=== PATIENT | male | born 1960 | race Caucasian/White ===

== ENCOUNTER 2021-01-04 04:22 | Observation (INO) | payer MEDICARE, MEDICAID ==
[~2021-01-04] VITALS: Ht 175.3 cm; Wt 64.1 kg
[~2021-01-04 04:22] MED LIST: AMIT50TA PO; BP MED PO; ENAL10TA9 PO; FOLI1TAB32 PO; INSU100C5 SQ-INSULIN; INSU100V8 SQ; LONG ACTING INSULIN SQ; MAGN400T50 PO; PANT40TA6 PO; PHOS250T PO; POLY17PO5 PO; THIA100T67 PO
[2021-01-04] MEDS ORDERED: DEXTROSE 50%, 50ML SYRINGE ONE (04:47)
[2021-01-04] MEDS ORDERED: DEXTROSE 10% 1,000 ML IV SCH (05:00)
[2021-01-04] MEDS ORDERED: DEXTROSE 50%, 50ML SYRINGE IVPush ONE (05:00)
[2021-01-04] MEDS ORDERED: DEXTROSE 10%, 1,000ML IV ONE (05:00)
[2021-01-04] MEDS ORDERED: HYDROmorphone 1 MG/ML, 1ML INJ ONE (05:14)
[2021-01-04] MEDS ORDERED: HYDROmorphone 1 MG/ML, 1ML INJ IV ONE (05:30)
[2021-01-04 05:38] LABS: BASOPHILS % (AUTO) 0 % (0-1); EOSINOPHILS % (AUTO) 0 % (1-7); LYMPHOCYTES % (AUTO) 10 % (22-44); MEAN CORPUSCULAR HEMOGLOBIN 30.7 pg (27.5-34.5); MEAN CORPUSCULAR HGB CONC 32.6 g/dL (33.2-36.2); MEAN PLATELET VOLUME 8.9 fL (7.4-10.4); MONOCYTES % (AUTO) 5 % (2-9); NEUTROPHILS % (AUTO) 85 % (42-75); PLATELET COUNT 342 x10^3/uL (130-400); RED BLOOD COUNT 3.63 x10^6/uL (4.38-5.82); RED CELL DISTRIBUTION WIDTH 13.2 % (9.4-14.8)
[2021-01-04 05:40] LABS: MD NO
[2021-01-04 05:50] LABS: CHLORIDE 104 mmol/L (98-107)
[2021-01-04 05:55] LABS: ALANINE AMINOTRANSFERASE 20 U/L (12-78); ALBUMIN 3.3 g/dL (3.4-5.0); ALKALINE PHOSPHATASE 85 U/L (45-117); ANION GAP 5 mmol/L (5-15); BILIRUBIN,TOTAL 0.5 mg/dL (0.2-1.0); CALCIUM 8.2 mg/dL (8.5-10.1); CREATININE 0.81 mg/dL (0.7-1.3); TOTAL PROTEIN 6.7 g/dL (6.4-8.2)
[2021-01-04 06:15] LABS: MICROSCOPIC NOT IND
--- NOTE | 2021-01-04 06:33 | NUR ---
PT STATES BACK WENT OUT, CRAWLED TO NEIGHBOR STATES HE MAY HAVE BLACKED OUT EMS CALLED FOUND PT GLUCOSE WAS AT 30. ENROUTE ADMINSTED D10 SAID WENT TO 90.
--- NOTE | 2021-01-04 06:35 | NUR ---
AT 0500 PT BP WAS 164/71 ERP NOTIFIED NOT NEW AT THIS TIME, AND NO SYMPTOMS RELATED TO HTN AT THIS TIME ALSO.
--- NOTE | 2021-01-04 06:37 | NUR ---
PT HYPERTENSIVE AT THIS TIME. ERP AWARE WITH NO NEW ORDERS AT THIS TIME.
--- NOTE | 2021-01-04 06:56 | NUR ---
REPORT GIVEN TO ELGIN LANDIN.
[2021-01-04] MEDS ORDERED: ACETAMINOPHEN 325 MG TABLET PO PRN (07:30)
[2021-01-04] MEDS ORDERED: ONDANSETRON ODT 4 MG PO PRN (07:30)
[2021-01-04] MEDS ORDERED: AMITRIPTYLINE 50 MG TABLET PO PRN (07:30)
[2021-01-04] MEDS ORDERED: D5%-0.9% NACL 1,000 ML IV SCH (07:30)
[2021-01-04] MEDS ORDERED: TRAZODONE 50MG TABLET PO PRN (07:30)
--- NOTE | 2021-01-04 08:04 | NUR ---
REPORT TO MUSHTAQ CHAPPELL
[2021-01-04] MEDS ORDERED: ATOR40TA78 PO (08:35)
[2021-01-04] MEDS ORDERED: TIZA4TAB2 PO (08:35)
[2021-01-04] MEDS ORDERED: METO25TA4 PO (08:35)
[2021-01-04] MEDS ORDERED: CYCL10TA2 PO (08:35)
[2021-01-04] MEDS ORDERED: ENALAPRIL 5MG TABLET ONE (08:49)
[2021-01-04] MEDS ORDERED: ENALAPRIL 10 MG TABLET PO SCH (09:00)
[2021-01-04] MEDS ORDERED: FOLIC ACID 1 MG TABLET PO SCH (09:00)
[2021-01-04] MEDS ORDERED: MAGNESIUM OXIDE 400 MG TABLET PO SCH (09:00)
[2021-01-04] MEDS ORDERED: K-PHOS NEUTRAL 250MG TAB PO SCH (09:00)
[2021-01-04] MEDS ORDERED: PANTOPRAZOLE 40MG TABLET PO SCH (09:00)
[2021-01-04] MEDS ORDERED: THIAMINE 100MG TABLET PO SCH (09:00)
[2021-01-04 12:59] VITALS: BP 129/65
[2021-01-04 12:59] LABS: MICROSCOPIC NOT IND
[2021-01-04 13:12] LABS: AMPHETAMINE SCREEN, URINE Negative (Negative); BARBITURATE SCREEN, URINE Negative (Negative); BENZODIAZEPINE SCREEN, URINE Negative (Negative); CANNABINOID SCREEN, URINE Positive (Negative); COCAINE SCREEN, URINE Negative (Negative); METHADONE SCREEN, URINE Negative (Negative); OPIATE SCREEN, URINE Negative (Negative)
[2021-01-04] MEDS ORDERED: PNEUMOCOCCAL 23 VACCINE IM-VACC ONE (14:00)
== END 2021-01-04 17:58 | disposition home or self-care (01) ==
LOC: ED 06:00 → INTOOBSV 06:43 → EDIP 06:43 → 4NW 08:13
PROVIDERS: ADMIT Internal Medicine; ATTEND Internal Medicine
DX: E10.649 Type 1 diabetes mellitus with hypoglycemia without coma (principal); E10.40 Type 1 diabetes mellitus with diabetic neuropathy, unspecified; I10 Essential (primary) hypertension; F41.9 Anxiety disorder, unspecified; G89.29 Other chronic pain; M54.9 Dorsalgia, unspecified; F17.200 Nicotine dependence, unspecified, uncomplicated; F10.20 Alcohol dependence, uncomplicated; F12.90 Cannabis use, unspecified, uncomplicated; Z87.19 Personal history of other diseases of the digestive system; Z79.899 Other long term (current) drug therapy; Z79.4 Long term (current) use of insulin; Z23 Encounter for immunization
CPT/HCPCS: 71045; 80053; 80307; 81003; 82962; 83605; 83690; 85025; 87040; 90732; 93005; 96361; 96374; 96375; 99285; G0009; G0378; J1170